=== PATIENT | female | born 1985 | race American Indian/Alaskan Native ===

== ENCOUNTER 2019-03-29 08:36 | Emergency (ER) | payer SELFPAY ==
[2019-03-29 08:41] VITALS: BP 139/94
== END 2019-03-29 17:22 | disposition left against medical advice (07) ==
LOC: ED 08:36
DX: M25.571 Pain in right ankle and joints of right foot (principal); Z53.21 Procedure and treatment not carried out due to patient leaving prior to being seen by health care provider